=== PATIENT | female | born 1930 | race Caucasian/White ===

== ENCOUNTER 2019-04-11 18:59 | Inpatient (IN) | payer OTHER ==
[~2019-04-11] VITALS: Ht 170.2 cm; Wt 68.0 kg
[2019-04-11 19:03] VITALS: BP 120/67
[2019-04-11 20:03] LABS: HEMATOCRIT 25.4 % (37.0-47.0); HEMOGLOBIN 7.9 gm/dL (12.0-15.0); MCH 25.1 pg (26.0-34.0); MCV 81.1 fL (80.0-100.0); PLATELET COUNT 483 thou/uL (150-400); RBC 3.14 mil/uL (4.20-5.00); RDW 21.1 % (10.5-14.5)
[2019-04-11 20:17] LABS: ALBUMIN 2.6 g/dL (3.4-5.0); CALCIUM 8.8 mg/dL (8.5-10.1); TOTAL BILIRUBIN 0.2 mg/dL (<0.1-1.0); TOTAL PROTEIN 6.4 g/dL (6.4-8.2)
[2019-04-11 20:19] LABS: PROTIME 10.6 Seconds (9.3-11.4)
[2019-04-11 20:27] LABS: POTASSIUM 6.1 mmol/L (3.5-5.1)
--- NOTE | 2019-04-11 20:30 | NUR ---
lab contracted to do redraw on chemistry
[2019-04-11 20:43] LABS: ABSOLUTE NEUTROPHILS 5.4 thou/uL (1.4-8.2); ANISOCYTOSIS 2+; POLYCHROMASIA OCCASIONAL
[2019-04-11 20:44] LABS: HYPOCHROMASIA SLIGHT
--- NOTE | 2019-04-11 20:55 | NUR ---
Lab unsuccessful to draw labs by to people. Dr. Cortez aware
[2019-04-11] MEDS ORDERED: LEVAQUIN 500 M500 M2 PO (22:58)
[2019-04-11] MEDS ORDERED: IBUPROFEN 600600 M1 PO (22:59)
[2019-04-11] MEDS ORDERED: NEURONTIN 400400 M1 PO (23:00)
[2019-04-11] MEDS ORDERED: OXYBUTYNIN CHLOR5 M1 PO (23:00)
[2019-04-11] MEDS ORDERED: DEMECLOCYCLINE150 MG PO (23:01)
[2019-04-11] MEDS ORDERED: LASIX 40 MG TAB40 M2 PO (23:01)
[2019-04-11] MEDS ORDERED: LISINOPRIL20 MG PO (23:02)
[2019-04-11] MEDS ORDERED: OLANZAPINE5 MG PO (23:03)
[2019-04-11] MEDS ORDERED: NORCO 5-325 TA1 EAC1 PO (23:03)
[2019-04-11] MEDS ORDERED: IPRAT-ALBUT 0.5-3 ML INH (23:05)
[2019-04-11] MEDS ORDERED: TYLENOL325 MG PO (23:06)
[2019-04-11] MEDS ORDERED: MUCINEX600 MG PO (23:06)
[2019-04-11] MEDS ORDERED: SPIRONOLACTONE25 M1 PO (23:07)
[2019-04-11] MEDS ORDERED: ASPIR 8181 MG PO (23:08)
[2019-04-11] MEDS ORDERED: CENTRUM SILVER1 EAC4 PO (23:08)
[2019-04-11] MEDS ORDERED: BENADRYL25 MG PO (23:18)
[2019-04-11] MEDS ORDERED: CLARITIN10 MG PO (23:18)
[2019-04-11] MEDS ORDERED: SENNA8.6 MG PO (23:20)
[2019-04-11 23:45] VITALS: BP 125/76
[2019-04-12 01:08] VITALS: BP 125/76
[2019-04-12 01:20] VITALS: BP 129/65
--- NOTE | 2019-04-12 01:25 | NUR ---
NEW PT CAME FROM [facility] IN [place]. PT WAS ADMITTED FOR A GI BLEED. PT ARRIVED THE UNIT AROUND 0115. PT IS A&OX2 BUT FORGETFUL. PT HAS NOT HAD ANY BM SINCE SHE CAME TO THE HOSPITAL. [place] WHITTEN, MENTIONED THAT PT HAD BRIGHT RED BLOOD SMEAR IN THE TUBE THAT WAS USED ON HER FOR THE RECTAL EXAM. PT HAS A ARNDT THAT WAS PLACED IN THE RD FOR RETENTION AND ITS PATENT. PT IS WC BOUND. FALL RISK IN PLACE. CALLBELL WITHIN REACH NO S/S OF DISTRESS. WILL CONT TO MONITOR
[2019-04-12 03:30] LABS: HEMATOCRIT 25.2 % (37.0-47.0); HEMOGLOBIN 7.9 gm/dL (12.0-15.0); MCH 24.5 pg (26.0-34.0); MCHC 31.2 g/dL (28.0-37.0); MCV 78.5 fL (80.0-100.0); RBC 3.21 mil/uL (4.20-5.00); RDW 20.7 % (10.5-14.5); WBC 5.6 thou/uL (4.0-11.0)
[2019-04-12 05:37] LABS: CALCIUM 8.8 mg/dL (8.5-10.1); MAGNESIUM 1.6 mg/dL (1.8-2.4); POTASSIUM 4.5 mmol/L (3.5-5.1)
[2019-04-12 06:06] VITALS: BP 139/52
[2019-04-12 08:37] VITALS: BP 132/53
[2019-04-12 09:43] LABS: ABSOLUTE RETIC COUNT 0.0624 10^6/uL; OBSERVED RETIC COUNT 1.94 % (0.6-2.6)
[2019-04-12 09:44] LABS: % SATURATION 5 % (20-39); IRON 15 ug/dL (50-170); TIBC 328 ug/dL (250-450)
[2019-04-12 10:11] LABS: FERRITIN 35 ng/mL (8-252)
[2019-04-12 13:44] LABS: URINE BILIRUBIN NEGATIVE (Negative); URINE BLOOD TRACE (Negative); URINE CLARITY SL CLOUDY; URINE COLOR YELLOW; URINE GLUCOSE-RANDOM* NEGATIVE (Negative); URINE KETONES NEGATIVE (Negative); URINE LEUKOCYTES-REFLEX 3+ (Negative); URINE NITRITE-REFLEX NEGATIVE (Negative); URINE PROTEIN (DIPSTICK) NEGATIVE (Negative); URINE SPECIFIC GRAVITY <= 1.005 (1.005-1.035); URINE UROBILINOGEN 0.2 E.U./dl (0.2-1.0)
[2019-04-12 13:51] LABS: CASTS None Seen /LPF (None Seen); SQUAMOUS None Seen /LPF (0-3); URINE RBC 0-2 Rare /HPF (0-2)
[2019-04-12 13:52] LABS: BACTERIA-REFLEX 1-9 Few /HPF (None Seen); CRYSTALS None Seen /LPF (None Seen)
--- NOTE | 2019-04-12 15:43 | NUR ---
PT ADMITTED RELATED TO GI BLEED. CM REVIEWED CHART AND SPOKE WITH CARE TEAM. CM MET WITH PT, SON, AND DTR IN LAW AT BEDSIDE THIS DAY. PT WAS SLEEPING SON ANSWERED ASSESSMENT QUESTIONS. HE INDICATED THAT PT IS [place] [facility] [place] THAT PT HAS LIVED THERE FOR 20 YEARS. HE INDICATED THAT PT IS PRIMARILY WC BOUND BUT HAD BEEN ABLE TO ASSIST WITH TRANSFERS [employer] SALES ENGINE[employer]. SON INDICATED THAT THEY ANTICIPAT PT RETURNING [place] [facility] [place] MEDIC[place]. CLINICAL UPDATE TO BE SENT TO THE FACILITY. CM TO FOLLOW INDICATED WITH DC PLANNING.
[2019-04-12 16:04] VITALS: BP 122/58
--- NOTE | 2019-04-12 17:46 | NUR ---
Assumed patient care at 0715. Patient was NPO, had a EGD completed today. She is on full liquids until mmidnight. At midnight, she will be NPO for a Colonoscpy tomorrow. Patient has had no BM's today, no blood noted from the rectal area. Patient is pleasantly confused. She asked nurse for "something for level seven back pain." Dr Angel Garcia notified, she ordered daily Lidocaine patch. When this nurse put the Lidocaine patch on, she stated "I don't have any pain." Patient has not complained of pain since the patch was applied. Vital signs have been stable, LS diminished, ABD soft et non-tender, skin is clean, warm, dry et intact.
[2019-04-12 20:20] VITALS: BP 111/76
--- NOTE | 2019-04-13 03:10 | NUR ---
ASSUMED CARE OF PT @1900. PT A&O BUT CAN BE CONFUSED. ARNDT IN PLACE AND PATENT. PT HAS BEEN NPO AFTER MIDNIGHT. PT IS Q2 TURN. FAMILY IS AT THE BEDSIDE. PT C/O OF "COUGHING ALOT" AND MEDICATION WAS OBTAINED AND GIVEN. NO BM OVENIGHT. V/S STABLE. NO S/S OF DISTRESS. WILL CONT TO MONITOR
[2019-04-13 08:30] VITALS: BP 118/89
--- NOTE | 2019-04-13 13:07 | NUR ---
CARE TEAM INDICATED THAT PT WILL LIKELY BE MEDICALLY STABLE TO DISCHARGE BACK TO [facility] [place] TOMORROW. CM ASKED THAT CLINICAL UPDATE BE SENT TO THE FACILITY AND INDICATED POSSIBLE DISCHARGE TOMORROW. CM TO FOLLOW INDICATED WITH DC PLANNING.
--- NOTE | 2019-04-13 13:11 | NUR ---
DISCHARGE PLANNING. 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 POSSIBLE DISCHARGE TOMORROW. PLAN IS FOR PATIENT TO RETURN TO [facility]. CLINICAL INFORMATION FAXED TO [facility], [facility] ADMISSIONS. CALL PLACED TO [facility] TO NOTIFY. FOLLOWING TO ASSIST.
--- NOTE | 2019-04-13 14:38 | NUR ---
Assumed patient care at 0715. Patient continues to be total care. Urinary catheter is patent, with light yellow urine. Patient is alert et oriented to self et family, can get confused. Patient's vital signs have been stable, lung sounds are diminished, ABD is soft et non-tender, skin is clean, warm, dry et intact. She was given Tylenol 650mg po at 1200 for generalized pain (rated level seven with FACES Scale, was moaning). Tylenol was helpful within 25-40minutes; client has been calm since. Turning q 2 hours. Will continue to monitor.
[2019-04-13 14:40] VITALS: BP 112/59
--- NOTE | 2019-04-13 15:14 | NUR ---
THIS RN NOTIFIED DR TORREZ OF PATIENT IV NOT GOOD, RECEIVED ORDER FOR OK TO LEAVE IV OUT AT THIS TIME. THIS RN INFORMED DR TORREZ OF SPEECH EVAL AND THAT DIET HAD BEEN CHANGED TO PUREED WITH THIN LIQUIDS. FAMILY HAS BEEN AT BEDSIDE MOST OF THE DAY, WILL RETURN IN THE AM. DR TORREZ STATED FOR SPEECH TO CONTINUE WORKING WITH THE PATIENT AND POSSIBLE DISCHARGE TOMORROW BACK TO FACILITY.
[2019-04-13 21:12] VITALS: BP 143/67
--- NOTE | 2019-04-14 04:02 | NUR ---
assessment completed. pt is alert but confused and forgetful. pt was given tylenol for generalized pain. mistry in place and patent. pt is q2 turn. tolerating thick liquids well. no s/s of distress. fall prec in place
[2019-04-14 05:47] LABS: HEMATOCRIT 25.5 % (37.0-47.0); MCH 24.5 pg (26.0-34.0); MCHC 31.4 g/dL (28.0-37.0); MCV 78.1 fL (80.0-100.0); RBC 3.26 mil/uL (4.20-5.00); RDW 20.4 % (10.5-14.5); WBC 6.1 thou/uL (4.0-11.0)
[2019-04-14 06:06] LABS: CREATININE 0.7 mg/dL (0.6-1.0); POTASSIUM 4.1 mmol/L (3.5-5.1)
[2019-04-14 09:25] VITALS: BP 139/60
[2019-04-14 16:55] VITALS: BP 133/65
[2019-04-14 19:38] VITALS: BP 136/87
--- NOTE | 2019-04-14 19:54 | NUR ---
ASSUMED CARE OF PATIENT AT 0715, PATIENT ALERT WITH CONFUSION. PATIENT HOLLARS OUT AND CRIES AT TIMES. C/O GENERALIZED PAIN OVER BODY WITH MOVEMENT AND ACTIVITY. REPORTIONED EVERY 2 HOURS. PATIENT RECEIVED TYLENOL 2 TABS AND HAS LIDOCAINE PATCH APPLIED TO BACK AREA. PATIENT IS A FEEDER DUE TO POSSIBLE ASPIRATION, COUGHS WHILE EATING AND DRINKING, SPEECH EVALUATED YESTERDAY. DIET CHANGED TO PUREED WITH THICK LIQUIDS. BLOOD SUGAR MONITROING ORDERED NO COVERAGE NEEDED THIS SHIFT. NO IV IN PLACE OK BY DR TORREZ. PO IRON WILL START TOMORROW. SON UPDATED ON CARE. PATIENT MAY DISCHARGE TOMORROW BACK TO [facility]. WILL CONTINUE TO MONITOR.
--- NOTE | 2019-04-15 06:15 | NUR ---
PROGRESS PT ALERT AND AWAKE, BUT CONFUSED ABLE TO SPEAK SOME MOSTLY TO TELL YOU TO STOP OR COME BACK. NO IV IN PLACE, PT HAS A ARNDT CATHETER THAT WAS EMPTIED OF 1300 ML'S CLEAR YELLOW URINE. TAKING SMALL AMOUNTS OF THICKENED LIQUIDS, ABLE TO SWALLOW PILLS WHOLE, DOES HAVE A PRODUCTIVE COUGH BUT COUGH NOT NOTED WHILE EATING OR DRINKING THIS SHIFT. VSS CONTINUE TO MONITOR LABS. PLAN IS TO DDC BACK TO SNF TODAY OR TOMORROW.
[2019-04-15 07:48] VITALS: BP 147/68
[2019-04-15 10:55] LABS: ALBUMIN 2.7 g/dL (3.4-5.0); CREATININE 0.8 mg/dL (0.6-1.0); TOTAL BILIRUBIN 0.2 mg/dL (<0.1-1.0); TOTAL PROTEIN 6.1 g/dL (6.4-8.2)
[2019-04-15] MEDS ORDERED: IRON325 PO (12:36)
[2019-04-15] MEDS ORDERED: CEFDINIR300 MG PO (12:38)
[2019-04-15] MEDS ORDERED: PROTONIX40 M1 PO (15:14)
--- NOTE | 2019-04-15 20:35 | NUR ---
QUIET UNEVENTFUL DAY. PATIENT RESTED IN BED ALL DAY. TYLENOL GIVEN FOR COMPLAINTS OF CHEST PAIN AND HELPFUL. PATIENT EATING VERY LITTLE. DID EAT A CONTAINER OF YOGURT FOR BREAKFAST AND LUNCH. ATE A FEW BITES OF POTATOES AND DRANK APPROXIMATELY 1/3 OF SUPPLEMENT SHAKE FOR BREAKFAST AND LUNCH. TURNED Q2H. NO SKIN BREAKDOWN NOTED. GOOD URINE OUTPUT. CALLED REPORT TO TRESSA AT [facility]. PATIENT DISMISSED VIA AMBULANCE AT 1420 IN STABLE CONDITION.
== END 2019-04-15 14:00 | DRG 377 ==
LOC: ER 18:59 → 4S 23:43 → EROBS 23:43 → 4S 04-12 01:08
PROVIDERS: Emergency Medicine; Internal Medicine; Nurse Practitioner Acute Care; ADMIT Internal Medicine
PROC: 0DJ08ZZ Inspection of Upper Intestinal Tract, Via Natural or Artificial Opening Endoscopic (ICD-10-PCS; principal; 2019-04-12)
DX: K92.2 Gastrointestinal hemorrhage, unspecified (principal); E43 Unspecified severe protein-calorie malnutrition; J96.10 Chronic respiratory failure, unspecified whether with hypoxia or hypercapnia; N39.0 Urinary tract infection, site not specified; E46 Unspecified protein-calorie malnutrition; D64.9 Anemia, unspecified; R33.9 Retention of urine, unspecified; F03.90 Unspecified dementia, unspecified severity, without behavioral disturbance, psychotic disturbance, mood disturbance, and anxiety; E11.9 Type 2 diabetes mellitus without complications; J44.9 Chronic obstructive pulmonary disease, unspecified; K59.00 Constipation, unspecified; I50.9 Heart failure, unspecified; F32.9 Major depressive disorder, single episode, unspecified; M19.90 Unspecified osteoarthritis, unspecified site; K44.9 Diaphragmatic hernia without obstruction or gangrene; N32.81 Overactive bladder; R13.10 Dysphagia, unspecified; Z68.23 Body mass index [BMI] 23.0-23.9, adult; Z88.0 Allergy status to penicillin; Z79.899 Other long term (current) drug therapy
CPT/HCPCS: 10102; 62110; 62900; 70005